=== PATIENT | female | born 1960 ===

== ENCOUNTER 2016-11-08 13:05 | Emergency (ER) | payer MEDICARE ==
[2016-11-08 13:06] VITALS: BMI 38.0
[2016-11-08 13:30] VITALS: TEMP 98.2; O2SAT 100
[2016-11-08] MEDS ORDERED: Sodium Chloride 0.9% 1,000 ML IV STA (14:21)
--- NOTE | 2016-11-08 14:22 | ED PDOC ---
Arrival/HPI - General Chief Complaint: Abdominal Pain Time Seen by Provider: 11/08/16 14:04 Historian: Patient - History of Present Illness Narrative History of Present Illness (Text): 11/08/16 14:19 A 55 year old female, whose past medical history includes hypothyroidism and arthritis, gastric bypass 2 yrs ago, presents to the emergency department complaining of left upper abdominal pain for 2 days. Patient denies any relieving or exacerbating factors. Patient denies any fever, chills, nausea, vomiting, diarrhea, urinary symptoms, chest pain, shortness of breath or any other complaints. PMD: Dr. Moore 11/08/16 18:29 Time/Duration: Other (2 days) Quality: Other Context: Home Past Medical History - Provider Review Nursing Documentation Reviewed: Yes - Tetanus Immunization Tetanus Immunization: Unknown - Cardiac Hx Cardiac Disorders: Yes Hx Hypertension: Yes - Pulmonary Hx Respiratory Disorders: No - Neurological Hx Neurological Disorder: Yes Hx Migraine: Yes - HEENT Hx HEENT Disorder: No - Renal Hx Renal Disorder: No - Endocrine/Metabolic Hx Endocrine Disorders: Yes Hx Diabetes Mellitus Type 2: Yes (PREDIABETES) Hx Hypothyroidism: Yes - Hematological/Oncological Hx Blood Disorders: No - Integumentary Hx Dermatological Disorder: No - Musculoskeletal/Rheumatological Hx Musculoskeletal Disorders: Yes Hx Arthritis: Yes Hx Osteoporosis: Yes - Gastrointestinal Hx Gastrointestinal Disorders: Yes Hx Gastritis: Yes - Genitourinary/Gynecological Hx Genitourinary Disorders: No - Psychiatric Hx Psychophysiologic Disorder: Yes Hx Depression: Yes Hx Emotional Abuse: No Hx Physical Abuse: No Hx Substance Use: No - Surgical History Hx Section: Yes (X3) Hx Hysterectomy: Yes Hx Thyroidectomy: Yes (PARTIAL) Other/Comment: BREAST LIFT, LT SHOULDER TENDON REPAIR, PARTIAL THYROIDECTOMY, LT ARM CYST REMOVAL, - Anesthesia Hx Anesthesia: Yes Hx Anesthesia Reactions: No Hx Malignant Hyperthermia: No - Suicidal Assessment Feels Threatened In Home Enviroment: No Family/Social History - Physician Review Nursing Documentation Reviewed: Yes Family/Social History: No Known Family HX Smoking Status: Never Smoked Hx Alcohol Use: Yes (social) Hx Substance Use: No Hx Substance Use Treatment: No Allergies/Home Meds Allergies/Adverse Reactions: Allergies codeine Allergy (Verified 11/08/16 13:28) RASH oxycodone Allergy (Verified 11/08/16 13:28) RASH tramadol Allergy (Verified 11/08/16 13:28) RASH Home Medications: Home Meds Medication Instructions Recorded Confirmed Levothyroxine [Synthroid] 100 mcg PO DAILY 11/08/16 11/08/16 Omeprazole 20 mg PO DAILY 11/08/16 11/08/16 buPROPion [Bupropion HCl] 100 mg PO DAILY 11/08/16 11/08/16 Review of Systems - Physician Review All systems were reviewed & negative as marked: Yes - Review of Systems Constitutional: absent: Fevers, Night Sweats Respiratory: absent: SOB Cardiovascular: absent: Chest Pain Gastrointestinal: Abdominal Pain. absent: Diarrhea, Nausea, Vomiting Genitourinary Female: absent: Dysuria, Frequency, Hematuria, Urine Output Changes Physical Exam Vital Signs Reviewed: Yes Vital Signs Temp Pulse Resp BP Pulse Ox 11/08/16 16:43 80 17 119/58 L 100 11/08/16 13:30 98.2 F 70 16 110/76 100 Temperature: Afebrile Blood Pressure: Normal Pulse: Regular Respiratory Rate: Normal Appearance: Positive for: Well-Appearing, Non-Toxic, Comfortable Pain Distress: None Mental Status: Positive for: Alert and Oriented X 3 - Systems Exam Head: Present: Atraumatic, Normocephalic Pupils: Present: PERRL Extroacular Muscles: Present: EOMI Conjunctiva: Present: Normal Mouth: Present: Moist Mucous Membranes Neck: Present: Normal Range of Motion Respiratory/Chest: Present: Clear to Auscultation, Good Air Exchange. No: Respiratory Distress, Accessory Muscle Use Cardiovascular: Present: Regular Rate and Rhythm, Normal S1, S2. No: Murmurs Abdomen: Present: Tenderness (Left upper quadrant and Epigastric tenderness to palpation), Normal Bowel Sounds. No: Distention, Peritoneal Signs Back: Present: Normal Inspection Upper Extremity: Present: Normal Inspection. No: Cyanosis, Edema Lower Extremity: Present: Normal Inspection. No: Edema Neurological: Present: GCS=15, CN II-XII Intact, Speech Normal Skin: Present: Warm, Dry, Normal Color. No: Rashes Psychiatric: Present: Alert, Oriented x 3, Normal Insight, Normal Concentration Medical Decision Making ED Course and Treatment: 11/08/16 14:19 Impression: A 55 year old female with left upper abdominal pain. Patient denies nausea, vomiting or diarrhea. consider gastritis pancreatitis, gerd. noted endoscopy 2 yrs ago showing hiatal hernia, gastritis. Plan: -- Chest xray -- EKG -- Labs -- Urinalysis -- Zofran, Protonix and IV fluids -- Reassess and disposition Progress Notes: Report Date : 11/08/2016 14:32:59 Procedure: Chest xray Dictator : Eb Gallego MD IMPRESSION: No active disease. 11/08/16 15:35 EKG: Ordered, reviewed, and independently interpreted the EKG. Rate : 68 BPM Rhythm : NSR Interpretation : No ST/T wave changes 11/08/16 18:29 pt reasseseD: pain improving. discussed results with patient. pt advised to see her gi doctor and primary care doctor for followup. return precautions advised. - Lab Interpretations Lab Results: 11/08/16 15:15 11/08/16 15:15 Lab Results 11/08/16 15:15: Sodium 141, Potassium 4.1, Chloride 103, Carbon Dioxide 29, Anion Gap 13, BUN 19, Creatinine 0.6, Est GFR ( Amer) > 60, Est GFR (Non- Af Amer) > 60, Random Glucose 83, Calcium 9.1, Magnesium 1.7, Total Bilirubin 0.4, AST 26, ALT 25, Alkaline Phosphatase 66, Lactate Dehydrogenase 401, Total Creatine Kinase 47, Troponin I < 0.01, Total Protein 7.1, Albumin 4.0, Globulin 3.1, Albumin/Globulin Ratio 1.3, Lipase 72 11/08/16 15:15: PT 10.6, INR 0.98, APTT 26.7 11/08/16 15:15: WBC 3.8 L, RBC 4.08, Hgb 11.7 L, Hct 36.1, MCV 88.5, MCH 28.7, MCHC 32.4, RDW 13.2, Plt Count 256, MPV 8.7, Gran % 43.0 L, Lymph % (Auto) 47.9 H, [place] % (Auto) 7.8 H, Eos % (Auto) 1.0 L, Baso % (Auto) 0.3, Gran # 1.65, Lymph # 1.8, [place] # 0.3, Eos # 0.0, Baso # 0.01 11/08/16 14:10: Urine Color Yellow, Urine Appearance Clear, Urine pH 6.0, Ur Specific [place] >= 1.030, Urine Protein Negative, Urine Glucose (UA) Negative, Urine Ketones Trace H, Urine Blood Negative, Urine Nitrate Negative, Urine Bilirubin Negative, Urine Urobilinogen 0.2, Ur Leukocyte Esterase Negative I have reviewed the lab results: Yes - RAD Interpretation Radiology Orders: 11/08/16 14:18 CHEST PORTABLE [RAD] Stat 11/08/16 16:08 ABD & PELVIS IV CONTRAST ONLY [CT] Stat - Medication Orders Current Medication Orders: Discontinued Medications Sodium Chloride (Sodium Chloride 0.9%) 1,000 mls @ 999 mls/hr IV .Q1H1M STA Stop: 11/08/16 15:21 Last Admin: 11/08/16 15:37 Dose: 999 mls/hr Iohexol (Omnipaque 350 100 Ml) Confirm Administered Dose 350 mg .ROUTE .STK-MED ONE Stop: 11/08/16 16:23 Ketorolac Tromethamine (Toradol) 30 mg IVP STAT STA Stop: 11/08/16 16:09 Last Admin: 11/08/16 16:43 Dose: 30 mg Ondansetron HCl (Zofran Inj) 4 mg IVP STAT STA Stop: 11/08/16 14:21 Last Admin: 11/08/16 15:37 Dose: 4 mg Pantoprazole Sodium (Protonix Inj) 40 mg IVP STAT STA Stop: 11/08/16 14:21 Last Admin: 11/08/16 15:36 Dose: 40 mg - Scribe Statement The provider has reviewed the documentation as recorded by the Ilene Montes Provider Scribe Attestation: All medical record entries made by the Ilene were at my direction and personally dictated by me. I have reviewed the chart and agree that the record accurately reflects my personal performance of the history, physical exam, medical decision making, and the department course for this patient. I have also personally directed, reviewed, and agree with the discharge instructions and disposition. Disposition/Present on Arrival - Present on Arrival Any Indicators Present on Arrival: No History of DVT/PE: No History of Uncontrolled Diabetes: No Urinary Catheter: No History of Decub. Ulcer: No History Surgical Site Infection Following: None - Disposition Have Diagnosis and Disposition been Completed?: Yes Diagnosis: Abdominal pain Disposition: HOME/ ROUTINE Disposition Time: 18:31 Patient Problems: Current Active Problems Problem Status Onset Abdominal pain Acute Condition: STABLE Discharge Instructions (ExitCare): Acute Abdominal Pain (ED) Print Language: FRISIAN Additional Instructions: please follow up with your doctor. return to emergency room with worsneing symptoms or concerns. Prescriptions: Famotidine [Pepcid] 20 mg PO DAILY #20 tab Referrals: Lamar Moore MD [Primary Care Provider] - Follow up with primary Forms: [employer] (Vietnamese)
[2016-11-08 14:33] LABS: URINE BILIRUBIN NEGATIVE (NEGATIVE); URINE BLOOD NEGATIVE (NEGATIVE); URINE GLUCOSE (UA) NEGATIVE (NEGATIVE); URINE LEUKOCYTE ESTERASE NEGATIVE Leu/uL (NEGATIVE); URINE NITRATE NEGATIVE (NEGATIVE); URINE PROTEIN NEGATIVE mg/dL (<30 mg/dL); URINE UROBILINOGEN 0.2 E.U./dL (<1 E.U./dL)
[2016-11-08 14:34] LABS: URINE APPEARANCE CLEAR (CLEAR); URINE COLOR YELLOW (YELLOW)
--- NOTE | 2016-11-08 14:34 | RAD ---
HISTORY: abd -pain COMPARISON: 05/17/2016 FINDINGS: LUNGS: No active pulmonary disease. PLEURA: No significant pleural effusion identified, no pneumothorax apparent. CARDIOVASCULAR: Normal. OSSEOUS STRUCTURES: No significant abnormalities. VISUALIZED UPPER ABDOMEN: Normal. OTHER FINDINGS: None. IMPRESSION: No active disease.
[2016-11-08 15:47] LABS: ALB/GLOB RATIO 1.3 (1.1-1.8); ALT/SGPT 25 U/L (7-56); AST/SGOT 26 U/L (15-39); BLOOD UREA NITROGEN 19 mg/dL (7-21); CALCIUM 9.1 mg/dL (8.4-10.5); GFR AFRICAN-AMERICAN > 60; GFR NON-AFRICAN AMERICAN > 60; LIPASE 72 U/L (23-300); MAGNESIUM 1.7 mg/dL (1.7-2.2)
[2016-11-08 15:51] LABS: BASO # 0.01 K/mm3 (0.0-2.0); BASO % 0.3 % (0.0-3.0); GRAN # 1.65 (1.4-6.5); HEMOGLOBIN 11.7 g/dL (12.0-16.0); INR 0.98 (0.93-1.08); LYMPH # 1.8 (1.2-3.4); LYMPH % 47.9 % (22.0-35.0); MEAN CELL VOLUME 88.5 fl (80.0-105.0); MEAN CORPUSCULAR HEMOGLOBIN 28.7 pg (25.0-35.0); MEAN CORPUSCULAR HGB CONC 32.4 g/dl (31.0-37.0); MEAN PLATELET VOLUME 8.7 fl (7.0-11.0); MONO # 0.3 (0.1-0.6); MONO % 7.8 % (1.0-6.0); PARTIAL THROMBOPLASTIN TIME 26.7 Seconds (23.7-30.8); PLATELET COUNT 256 10^3/uL (120.0-450.0); PROTHROMBIN TIME 10.6 Seconds (9.9-11.8); RBC 4.08 10^6/uL (3.5-6.1); RED CELL DISTRIBUTION WIDTH 13.2 % (11.5-14.5); WHITE BLOOD COUNT 3.8 10^3/ul (4.5-11.0)
[2016-11-08 16:09] LABS: TROPONIN I < 0.01 ng/mL
[2016-11-08] MEDS ORDERED: Iohexol 350 MG/100 ML VIAL ONE (16:22)
[2016-11-08 16:44] VITALS: RESP 17
--- NOTE | 2016-11-08 18:22 | CT ---
PROCEDURE: CT Abdomen and Pelvis with contrast HISTORY: Left upper quadrant abdominal pain Relevant medical history: Gastritis COMPARISON: 04/21/2013. CT abdomen and pelvis. TECHNIQUE: Contrast dose: 100 cc Omnipaque 350 Radiation dose: Total exam DLP = 600.17 mGy-cm. This CT exam was performed using one or more of the following dose reduction techniques: Automated exposure control, adjustment of the mA and/or kV according to patient size, and/or use of iterative reconstruction technique. FINDINGS: LOWER THORAX: Dependent airspace disease likely atelectasis at the lung bases. LIVER: Unremarkable. No gross lesion or ductal dilatation. GALLBLADDER AND BILE DUCTS: Unremarkable. PANCREAS: Unremarkable. No gross lesion or ductal dilatation. SPLEEN: Unremarkable. ADRENALS: Unremarkable. No mass. KIDNEYS AND URETERS: Unremarkable. No hydronephrosis. No solid mass. VASCULATURE: Unremarkable. No aortic aneurysm. BOWEL: Postoperative findings left upper quadrant presumably gastric bypass/ stably procedure. APPENDIX: Normal appendix. PERITONEUM: Unremarkable. No free fluid. No free air. LYMPH NODES: Unremarkable. No enlarged lymph nodes. BLADDER: Unremarkable. REPRODUCTIVE: Unremarkable. BONES: No acute fracture. OTHER FINDINGS: None. IMPRESSION: Postoperative findings left upper quadrant likely related to gastric bypass surgery. Otherwise no acute/ significant findings or interval changes compared to the prior study.
[2016-11-08 18:53] VITALS: BP 118/60; PULSE 79
--- NOTE | 2016-11-09 23:56 | CARD ---
APPROVED REPORT EKG Measurement Heart [id number] <Conclusion> Normal sinus rhythm Normal ECG
== END 2016-11-08 18:58 | disposition home or self-care (01) ==
LOC: ED 13:05
DX: R10.12 Left upper quadrant pain (principal)
CPT/HCPCS: 71010; 74177; 80053; 81003; 82550; 83615; 83690; 83735; 84484; 85025; 85610; 85730; 93005; 96361; 96374; 96375; 99284; C9113; J1885; J2405; J7040; Q9967

== ENCOUNTER 2017-09-19 16:12 | Emergency (ER) | payer MEDICAID, MEDICARE, OTHER ==
[2017-09-19 16:21] VITALS: BMI 33.6
[2017-09-19 16:25] VITALS: RESP 18; TEMP 98.3
--- NOTE | 2017-09-19 16:45 | ED PDOC ---
Arrival/HPI - General Chief Complaint: Back Pain Time Seen by Provider: 09/19/17 16:15 Historian: Patient - History of Present Illness Narrative History of Present Illness (Text): 09/19/17 18:32 56 yo female presents to the ED c/o buttocks pain since fall 2 days ago. Pain is achy. Denies any lower back pain. No numbness or weakness. No incontinence. No head injury or LOC. Patient is able to walk without ataxia. Past Medical History - Provider Review Nursing Documentation Reviewed: Yes - Infectious Disease Hx of Infectious Diseases: None - Tetanus Immunization Tetanus Immunization: Unknown - Cardiac Hx Cardiac Disorders: Yes Hx Hypertension: Yes - Pulmonary Hx Respiratory Disorders: No - Neurological Hx Neurological Disorder: Yes Hx Migraine: Yes - HEENT Hx HEENT Disorder: No - Renal Hx Renal Disorder: No - Endocrine/Metabolic Hx Endocrine Disorders: Yes Hx Diabetes Mellitus Type 2: Yes (PREDIABETES) Hx Hypothyroidism: Yes - Hematological/Oncological Hx Blood Disorders: No - Integumentary Hx Dermatological Disorder: No - Musculoskeletal/Rheumatological Hx Musculoskeletal Disorders: Yes Hx Arthritis: Yes Hx Osteoporosis: Yes - Gastrointestinal Hx Gastrointestinal Disorders: Yes Hx Gastritis: Yes Other/Comment: gastric sleeve - Genitourinary/Gynecological Hx Genitourinary Disorders: No - Psychiatric Hx Psychophysiologic Disorder: Yes Hx Depression: Yes Hx Emotional Abuse: No Hx Physical Abuse: No Hx Substance Use: No - Surgical History Hx Section: Yes (X3) Hx Hysterectomy: Yes Hx Thyroidectomy: Yes (PARTIAL) Other/Comment: BREAST LIFT, LT SHOULDER TENDON REPAIR, PARTIAL THYROIDECTOMY, LT ARM CYST REMOVAL, - Anesthesia Hx Anesthesia: Yes Hx Anesthesia Reactions: No Hx Malignant Hyperthermia: No - Suicidal Assessment Feels Threatened In Home Enviroment: No Family/Social History - Physician Review Nursing Documentation Reviewed: Yes Family/Social History: No Known Family HX Smoking Status: Never Smoked Hx Alcohol Use: Yes (social) Hx Substance Use: No Hx Substance Use Treatment: No Allergies/Home Meds Allergies/Adverse Reactions: Allergies codeine Allergy (Verified 11/08/16 13:28) RASH oxycodone Allergy (Verified 11/08/16 13:28) RASH tramadol Allergy (Verified 11/08/16 13:28) RASH Home Medications: Home Meds Medication Instructions Recorded Confirmed Levothyroxine [Synthroid] 100 mcg PO DAILY 11/08/16 09/19/17 Omeprazole 20 mg PO DAILY 11/08/16 09/19/17 Atorvastatin [Lipitor] 1 tab PO HS 09/19/17 09/19/17 Review of Systems - Physician Review All systems were reviewed & negative as marked: Yes - Review of Systems Constitutional: Normal Eyes: Normal ENT: Normal Respiratory: Normal Cardiovascular: Normal Gastrointestinal: Normal Genitourinary Female: Normal Musculoskeletal: Other (buttocks pain) Skin: Normal Neurological: Normal Endocrine: Normal Hemo/Lymphatic: Normal Psychiatric: Normal Physical Exam Vital Signs Reviewed: Yes Vital Signs Temp Pulse Resp BP Pulse Ox 09/19/17 16:24 98.3 F 76 18 113/78 98 Temperature: Afebrile Blood Pressure: Normal Pulse: Regular Respiratory Rate: Normal Appearance: Positive for: Well-Appearing, Non-Toxic, Comfortable Pain Distress: None Mental Status: Positive for: Alert and Oriented X 3 - Systems Exam Head: Present: Atraumatic, Normocephalic Pupils: Present: PERRL Extroacular Muscles: Present: EOMI Conjunctiva: Present: Normal Mouth: Present: Moist Mucous Membranes Neck: Present: Normal Range of Motion. No: MIDLINE TENDERNESS Respiratory/Chest: Present: Clear to Auscultation, Good Air Exchange. No: Respiratory Distress, Accessory Muscle Use Cardiovascular: Present: Regular Rate and Rhythm, Normal S1, S2. No: Murmurs Abdomen: No: Tenderness, Distention, Peritoneal Signs Back: Present: Normal Inspection. No: Midline Tenderness Upper Extremity: Present: Normal Inspection. No: Cyanosis, Edema Lower Extremity: Present: Normal Inspection. No: Edema Neurological: Present: GCS=15, CN II-XII Intact, Speech Normal Skin: Present: Warm, Dry, Normal Color. No: Rashes Psychiatric: Present: Alert, Oriented x 3, Normal Insight, Normal Concentration Medical Decision Making ED Course and Treatment: 09/19/17 18:34 56 yo female with buttocks pain r/o fx -- Xrays -- Pain control Xrays reviewed and negative for Fracture. Patient given tylenol and toradol for pain. She was advised to ice the wound and to take tylenol for pain. Flexeril Rx given for extra pain control. She's not allergic to flexeril. She will f/u with her pmd and return to the ED if symptoms worsen. She speaks Anguillan primarily and I explained everything to her in Anguillan. - RAD Interpretation Radiology Orders: 09/19/17 16:41 LS SPINE AP/LAT [RAD] Stat SACRUM &/or COCCYX (MIN 2VW) [RAD] Stat - Medication Orders Current Medication Orders: Discontinued Medications Acetaminophen (Tylenol 325mg Tab) 650 mg PO STAT STA Stop: 09/19/17 16:42 Last Admin: 09/19/17 16:51 Dose: 650 mg MAR Pain/Vitals Document 09/19/17 16:51 LA (Rec: 09/19/17 16:52 LA [place] [id number]) Pain Reassessment Is This A Pain ReAssessment? No Sleep Is patient sleeping during reassessment? No Presence of Pain Presence of Pain Yes Pain Scale Used Pain Scale Used Numeric Location Upper or Lower Lower Pain Location Body Site tailbone Intensity 9 Scale Used Numeric Re-Assess: MAR Pain/Vitals Document 09/19/17 17:51 LA (Rec: 09/19/17 18:28 [facility] Pain Reassessment Is This A Pain ReAssessment? Yes Sleep Is patient sleeping during reassessment? No Presence of Pain Presence of Pain Yes Pain Scale Used Pain Scale Used Numeric Location Intensity 4 Ibuprofen (Motrin Tab) 600 mg PO STAT STA Stop: 09/19/17 16:42 Last Admin: 09/19/17 16:57 Dose: Ketorolac Tromethamine (Toradol) 30 mg IM STAT STA Stop: 09/19/17 18:28 Disposition/Present on Arrival - Present on Arrival Any Indicators Present on Arrival: No History of DVT/PE: No History of Uncontrolled Diabetes: No Urinary Catheter: No History of Decub. Ulcer: No History Surgical Site Infection Following: None - Disposition Have Diagnosis and Disposition been Completed?: Yes Diagnosis: Sacral contusion Disposition: HOME/ ROUTINE Disposition Time: 18:37 Patient Plan: Discharge Patient Problems: Current Active Problems Problem Status Onset Sacral contusion Acute Condition: IMPROVED Discharge Instructions (ExitCare): Coccyx Injury (DC) Additional Instructions: STEWART CANTU, thank you for letting us take care of you today. Your provider was Jerrell Perez DO and you were treated for Sacral Contusion. The emergency medical care you received today was directed at your acute symptoms. If you were prescribed any medication, please fill it and take as directed. It may take several days for your symptoms to resolve. Return to the Emergency Department if your symptoms worsen, do not improve, or if you have any other problems. Please contact your doctor or call one of the physicians/clinics you have been referred to that are listed on the Patient Visit Information form that is included in your discharge packet. Bring any paperwork you were given at discharge with you along with any medications you are taking to your follow up visit. Our treatment cannot replace ongoing medical care by a primary care provider outside of the emergency department. Thank you for allowing the [facility] team to be part of your care today. If you had an X-Ray or CT scan: A Radiologist will review the ED reading if any change in treatment is needed we will contact you. If you had a blood, urine, or wound culture: It will take several days for the results, if any change in treatment is needed we will contact you. If you had an STI test: It will take 48 hours for the results. Please call after 1 week if you have not heard back. Prescriptions: Cyclobenzaprine [Flexeril] 5 mg PO TID PRN #20 tab PRN Reason: Muscle Spasm Referrals: [facility], [Non-Staff] - Follow up with primary Forms: [employer] (Yoruba), WORK NOTE
[2017-09-19 18:41] VITALS: BP 115/75; PULSE 80; O2SAT 100
--- NOTE | 2017-09-20 09:03 | RAD ---
PROCEDURE: Radiographs of the Lumbar Spine. HISTORY: fall r/o fx COMPARISON: No prior. FINDINGS: BONES: Normal alignment. No listhesis. No fracture. DISC SPACES: Unremarkable. OTHER FINDINGS: None. IMPRESSION: Unremarkable radiographs of the lumbar spine.
--- NOTE | 2017-09-20 09:04 | RAD ---
PROCEDURE: Radiographs of the Sacrum and Coccyx HISTORY: fall r/o fx COMPARISON: None available. TECHNIQUE: Frontal and lateral views of the sacrum and coccyx FINDINGS: BONES: Sacrum and coccyx unremarkable. No fracture or focal lesion. SACROILIAC JOINTS: Unremarkable. OTHER FINDINGS: None. IMPRESSION: Unremarkable radiographs of the sacrum and coccyx.
== END 2017-09-19 18:40 | disposition home or self-care (01) ==
LOC: ED 16:12
DX: S30.0XXA Contusion of lower back and pelvis, initial encounter (principal); W07.XXXA Fall from chair, initial encounter; Y92.9 Unspecified place or not applicable
CPT/HCPCS: 72100; 72220; 96372; 99283; J1885

== ENCOUNTER 2017-09-25 06:40 | Emergency (ER) | payer MEDICARE, OTHER ==
[2017-09-25 06:41] VITALS: BMI 33.6
[2017-09-25 06:53] VITALS: RESP 18
[2017-09-25 07:30] VITALS: O2SAT 100
--- NOTE | 2017-09-25 07:37 | ED PDOC ---
Arrival/HPI - General Chief Complaint: Headache Time Seen by Provider: 09/25/17 07:11 Historian: Patient - History of Present Illness Narrative History of Present Illness (Text): 09/25/17 07:37 Patient is a 56 year old [place]an-speaking female, with past medical history of hypertension, migraine and hypothyroidism, presents to the Emergency department accompanied by sister complaining of neck pain since Tuesday. As translated by sister, patient states she fell on her buttocks on Tuesday but does not recall hitting her head or losing consciousness. Patient complained of back pain following the fall and was seen in the Emergency department on 09/19/17, when all tests were noted negative. Although her back pain resolved after treatment, however patient soon developed neck pain since Tuesday, which radiates to the back of her head. Patient reports visiting her PMD Dr. Moore and was prescribed pain medication with no improvement to symptoms. Patient now presents to the Emergency department for evaluation of her neck pain and headache, which worsens with head movement especially towards the right. She denies gait disturbance. Denies visual symptoms. Denies chest pain or abdominal pain. Denies numbness or tingling to arms or legs. Denies toothache or dental trauma. PMD: Dr. Moore Time/Duration: < week (since Tuesday) Symptom Onset: Gradual Symptom Course: Unchanged Quality: Aching Activities at Onset: Light Context: Home Past Medical History - Provider Review Nursing Documentation Reviewed: Yes - Infectious Disease Hx of Infectious Diseases: None - Tetanus Immunization Tetanus Immunization: Unknown - Reproductive Menopause: Yes - Cardiac Hx Cardiac Disorders: Yes Hx Hypertension: Yes - Pulmonary Hx Respiratory Disorders: No - Neurological Hx Neurological Disorder: Yes Hx Migraine: Yes - HEENT Hx HEENT Disorder: No - Renal Hx Renal Disorder: No - Endocrine/Metabolic Hx Endocrine Disorders: Yes Hx Diabetes Mellitus Type 2: Yes (PREDIABETES) Hx Hypothyroidism: Yes - Hematological/Oncological Hx Blood Disorders: No - Integumentary Hx Dermatological Disorder: No - Musculoskeletal/Rheumatological Hx Musculoskeletal Disorders: Yes Hx Arthritis: Yes Hx Osteoporosis: Yes - Gastrointestinal Hx Gastrointestinal Disorders: Yes Hx Gastritis: Yes Other/Comment: gastric sleeve - Genitourinary/Gynecological Hx Genitourinary Disorders: No - Psychiatric Hx Psychophysiologic Disorder: Yes Hx Depression: Yes Hx Emotional Abuse: No Hx Physical Abuse: No Hx Substance Use: No - Surgical History Hx Section: Yes (X3) Hx Hysterectomy: Yes Hx Thyroidectomy: Yes (PARTIAL) Other/Comment: BREAST LIFT, LT SHOULDER TENDON REPAIR, PARTIAL THYROIDECTOMY, LT ARM CYST REMOVAL, - Anesthesia Hx Anesthesia: Yes Hx Anesthesia Reactions: No Hx Malignant Hyperthermia: No - Suicidal Assessment Feels Threatened In Home Enviroment: No Family/Social History - Physician Review Nursing Documentation Reviewed: Yes Family/Social History: No Known Family HX Smoking Status: Never Smoked Hx Alcohol Use: Yes (social) Hx Substance Use: No Hx Substance Use Treatment: No Allergies/Home Meds Allergies/Adverse Reactions: Allergies codeine Allergy (Verified 09/25/17 06:54) RASH oxycodone Allergy (Verified 09/25/17 06:54) RASH tramadol Allergy (Verified 09/25/17 06:54) RASH Home Medications: Home Meds Medication Instructions Recorded Confirmed Levothyroxine [Synthroid] 100 mcg PO DAILY 11/08/16 09/25/17 Omeprazole 20 mg PO DAILY 11/08/16 09/25/17 Atorvastatin [Lipitor] 1 tab PO HS 09/19/17 09/25/17 Review of Systems - Physician Review All systems were reviewed & negative as marked: Yes - Review of Systems Constitutional: absent: Fevers Eyes: absent: Vision Changes, Photophobia, Eye Pain ENT: absent: Voice Changes, Sore Throat, Sinus Congestion Respiratory: absent: SOB, Cough Cardiovascular: absent: Chest Pain, Palpitations, Edema Gastrointestinal: absent: Abdominal Pain, Diarrhea, Nausea, Vomiting Genitourinary Female: absent: Frequency Musculoskeletal: Neck Pain. absent: Back Pain, Joint Swelling Skin: absent: Rash Neurological: Headache, Dizziness. absent: Focal Weakness, Gait Changes, Speech Changes, Facial Droop, Disequilibrium, Seizure Endocrine: absent: Polyuria Hemo/Lymphatic: absent: Easy Bleeding Psychiatric: absent: Anxiety, Depression Physical Exam - Physical Exam Narrative Physical Exam (Text): 09/25/17 07:51 Head: Atraumatic. Normocephalic. No facial bony tenderness. Eyes: PERRL. EOMI. Conjunctivae are not pale. Visual acuity and visual tong intact. ENT: Mucous membranes are moist and intact. Oropharynx is clear and symmetric. NO facial swelling. NO acute dental trauma noted. Neck: Left sided muscle spasm to posterior neck. Full ROM. No JVD. No lymphadenopathy. No midline tenderness or deformity. Cardiovascular: Regular rate. Regular rhythm. No murmurs, rubs, or gallops. Distal pulses are 2+ and symmetric. Pulmonary/Chest: No evidence of respiratory distress. Clear to auscultation bilaterally. Abdominal: Soft and non-distended. There is no tenderness. No rebound, guarding, or rigidity. Back: No CVA tenderness. No midline tenderness. NO pain with straight leg testing. Extremities: No edema. No cyanosis. No clubbing. Full range of motion in all extremities. No calf tenderness. Skin: Skin is warm and dry. Neurological: Alert, awake, and oriented. No slurred speech. Motor and sensory exam intact. Psychiatric: Good eye contact. Normal interaction, affect, and behavior. 09/25/17 14:59 Vital Signs Reviewed: Yes Vital Signs Temp Pulse Resp BP Pulse Ox 09/25/17 10:50 98.2 F 69 18 147/96 H 100 09/25/17 08:06 68 18 128/79 100 09/25/17 07:30 70 18 130/87 100 09/25/17 06:51 97.3 F L 73 18 130/87 99 Temperature: Afebrile Blood Pressure: Normal Pulse: Regular Appearance: Positive for: Non-Toxic, Uncomfortable Pain Distress: Mild Mental Status: Positive for: Alert and Oriented X 3 Medical Decision Making ED Course and Treatment: 09/25/17 07:45 Impression: 56 year old female presents to the Emergency department for neck pain and headache since Tuesday. Differential Diagnosis included but are not limited to: Torticollis vs. cervical strain vs. tension head rule out cerebral Plan: -- Valium -- Toradol -- CT of Head -- CT of Cervical spin -- Reassess and disposition Prior Visits: Notes and results from previous visits were reviewed. Progress Notes: Patient on exam has significant cervical spasm, left sided, palpable. NO neuro deficits noted. No fever. Pain is reproducible, worse with movement. She denies head injury or neck pain after fall one week ago. She is neuro intact. No chest pain or sob. I suspect neck pain spasm is contributing to patient's headache. 09/25/17 07:50 I have reviewed all allergies thoroughly with the patient, with her sister present for translation, and risks, benefits and side effects reviewed of Valium. Patient understands and is agreeable with medication. Valium and toradol given for neck pain. 09/25/17 09:01 CT of head reviewed by radiologist, shows: FINDINGS: Brain: Unremarkable. No hemorrhage. No significant white matter disease. No edema. Ventricles: Unremarkable. No ventriculomegaly. Bones/joints: Unremarkable. No acute fracture. Soft tissues: Unremarkable. Sinuses: Unremarkable as visualized. No acute sinusitis. Mastoid air cells: Unremarkable as visualized. No mastoid effusion. IMPRESSION: Normal head/brain CT. 09/25/17 09:38 CT of Cervical spine reviewed by radiologist, show: FINDINGS: Vertebrae: There is straightening of the cervical spine. This is nonspecific but may be seen in the setting of cervical muscle spasm, please correlate clinically. No acute fracture. Discs/spinal canal/neural foramina: No acute findings. No spinal canal stenosis. Soft tissues: Unremarkable. Lung apices: Unremarkable as visualized. IMPRESSION: There is straightening of the cervical spine. This is nonspecific but may be seen in the setting of cervical muscle spasm, please correlate clinically. 09/25/17 15:09 CT findings reviewed with patient and sister who translates. Patient has significant improvement in pain and resolution of headache. Will discharge with valium and naproxen, advised discontinuation of other pain mediation. Patient has no headache on discharge. Instructions provided via translation to sister and patient. - RAD Interpretation Radiology Orders: 09/25/17 07:35 HEAD W/O CONTRAST [CT] Stat 09/25/17 07:36 CERVICAL SPINE W/O CONTRAST [CT] Stat Engineering Assistant: Radiologist - Medication Orders Current Medication Orders: Discontinued Medications Diazepam (Valium) 2 mg PO ONCE ONE PRN Reason: Protocol Stop: 09/25/17 07:39 Last Admin: 09/25/17 08:26 Dose: 2 mg Ketorolac Tromethamine (Toradol) 30 mg IM ONCE ONE Stop: 09/25/17 07:39 Last Admin: 09/25/17 08:25 Dose: 30 mg MAR Pain Assessment Document 09/25/17 08:25 (Rec: 09/25/17 08:26 [id number]) Pain Reassessment Is this a pain reassessment? No Sleep Is patient sleeping during reassessment? No Presence of Pain Presence of Pain Yes IM Administration Charges Document 09/25/17 08:25 (Rec: 06/24/18 08:26 [id number]) Charges for Administration # of IM Administrations 1 - Scribe Statement The provider has reviewed the documentation as recorded by the Scribe Estefany Jones. All medical record entries made by the Scribe were at my direction and personally dictated by me. I have reviewed the chart and agree that the record accurately reflects my personal performance of the history, physical exam, medical decision making, and the department course for this patient. I have also personally directed, reviewed, and agree with the discharge instructions and disposition. Disposition/Present on Arrival - Present on Arrival Any Indicators Present on Arrival: No History of DVT/PE: No History of Uncontrolled Diabetes: No Urinary Catheter: No History of Decub. Ulcer: No History Surgical Site Infection Following: None - Disposition Have Diagnosis and Disposition been Completed?: Yes Diagnosis: Cervical strain, Headache Disposition: HOME/ ROUTINE Disposition Time: 10:45 Patient Plan: Discharge Condition: GOOD Discharge Instructions (ExitCare): Headache, Adult, Cervical Muscle Strain (DC) Additional Instructions: For any headaches, visual symptoms, numbness or weakness, chest pain or shortness of breath, abdominal pain, unsteadiness, persistent or worsening of symptoms, get rechecked. Follow-up with your physician in 1-2 days. Use valium with caution, do not drive with this medication, may cause drowsiness. Prescriptions: Naproxen 250 mg PO BID PRN #10 tablet PRN Reason: Pain, Mild (1-3) diaZEpam [Valium] 2 mg PO BID PRN #6 tab PRN Reason: Muscle Spasm Referrals: [facility] [Outside] - [place] up [place] [facility] [place] - Follow up with primary Forms: Setup (Bangladeshi)
--- NOTE | 2017-09-25 08:59 | CT ---
EXAM: CT Head Without Intravenous Contrast CLINICAL HISTORY: 56 years old, female; Pain; Other: Fall; Additional info: HX of fall with headache after one week TECHNIQUE: Axial computed tomography images of the head/brain without intravenous contrast. All CT scans at this facility use at least one of these dose optimization techniques: automated exposure control; mA and/or kV adjustment per patient size (includes targeted exams where dose is matched to clinical indication); or iterative reconstruction. Coronal and sagittal reformatted images were created and reviewed. COMPARISON: No relevant prior studies available. FINDINGS: Brain: Unremarkable. No hemorrhage. No significant white matter disease. No edema. Ventricles: Unremarkable. No ventriculomegaly. Bones/joints: Unremarkable. No acute fracture. Soft tissues: Unremarkable. Sinuses: Unremarkable as visualized. No acute sinusitis. Mastoid air cells: Unremarkable as visualized. No mastoid effusion. IMPRESSION: Normal head/brain CT.
--- NOTE | 2017-09-25 09:01 | CT ---
EXAM: CT Cervical Spine Without Intravenous Contrast CLINICAL HISTORY: 56 years old, female; Pain; Neck pain; Additional info: HX of fall persisent left sided neck pain TECHNIQUE: Axial computed tomography images of the cervical spine without intravenous contrast. All CT scans at this facility use at least one of these dose optimization techniques: automated exposure control; mA and/or kV adjustment per patient size (includes targeted exams where dose is matched to clinical indication); or iterative reconstruction. Coronal and sagittal reformatted images were created and reviewed. COMPARISON: No relevant prior studies available. FINDINGS: Vertebrae: There is straightening of the cervical spine. This is nonspecific but may be seen in the setting of cervical muscle spasm, please correlate clinically. No acute fracture. Discs/spinal canal/neural foramina: No acute findings. No spinal canal stenosis. Soft tissues: Unremarkable. Lung apices: Unremarkable as visualized. IMPRESSION: There is straightening of the cervical spine. This is nonspecific but may be seen in the setting of cervical muscle spasm, please correlate clinically.
[2017-09-25 10:51] VITALS: BP 147/96; PULSE 69; TEMP 98.2
== END 2017-09-25 10:50 | disposition home or self-care (01) ==
LOC: ED 06:40
DX: S16.1XXA Strain of muscle, fascia and tendon at neck level, initial encounter (principal); W18.30XA Fall on same level, unspecified, initial encounter; R51 Headache; E03.9 Hypothyroidism, unspecified; I10 Essential (primary) hypertension; E11.9 Type 2 diabetes mellitus without complications
CPT/HCPCS: 70450; 72125; 96372; 99283; J1885

== ENCOUNTER 2018-07-06 08:43 | Emergency (ER) | payer MEDICARE, OTHER ==
[2018-07-06 08:44] VITALS: BMI 33.6
--- NOTE | 2018-07-06 09:05 | ED PDOC ---
Arrival/HPI - General Chief Complaint: Abdominal Pain Time Seen by Provider: 07/06/18 08:59 Historian: Patient - History of Present Illness Narrative History of Present Illness (Text): 07/06/18 09:02 56 year old Chinese-speaking female, with past medical history of hypertension, migraine and hypothyroidism, presents to the Emergency department complaining of abdominal pain x 1 week. Pain is located to the epigastrum, described as burning, worse with eating and lying flat. Associated 5 episodes of nonbloody nonbilious vomiting since last night with associated migraine headache. States this feels like headaches in the past. Typically takes Excedrin but did not want to upset her stomach. Having BM per baseline. Last BM brown, soft yesterday. Pt has not taken any medication for pain. States she had similar symptoms 2 months ago that began after taking an unknown pill for her back pain. Denies fever, chills, back pain, chest pain, SOB, dizziness, vision changes, neck pain/stiffness, numbness, weakness, paresthesias, photophobia, sinus congestion, cough, or any other associated complaints. PMD: Dr. Moore GI: Dr. Acosta Past Medical History - Provider Review Nursing Documentation Reviewed: Yes - Infectious Disease Hx of Infectious Diseases: None - Tetanus Immunization Tetanus Immunization: Unknown - Cardiac Hx Cardiac Disorders: Yes Hx Hypertension: Yes - Pulmonary Hx Respiratory Disorders: No - Neurological Hx Neurological Disorder: Yes Hx Migraine: Yes - HEENT Hx HEENT Disorder: No - Renal Hx Renal Disorder: No - Endocrine/Metabolic Hx Endocrine Disorders: Yes Hx Diabetes Mellitus Type 2: Yes (PREDIABETES) Hx Hypothyroidism: Yes - Hematological/Oncological Hx Blood Disorders: No - Integumentary Hx Dermatological Disorder: No - Musculoskeletal/Rheumatological Hx Musculoskeletal Disorders: Yes Hx Arthritis: Yes Hx Osteoporosis: Yes - Gastrointestinal Hx Gastrointestinal Disorders: Yes Hx Gastritis: Yes Other/Comment: gastric sleeve - Genitourinary/Gynecological Hx Genitourinary Disorders: No - Psychiatric Hx Psychophysiologic Disorder: Yes Hx Depression: Yes Hx Emotional Abuse: No Hx Physical Abuse: No Hx Substance Use: No - Surgical History Hx Section: Yes (X3) Hx Hysterectomy: Yes Hx Thyroidectomy: Yes (PARTIAL) Other/Comment: BREAST LIFT, LT SHOULDER TENDON REPAIR, PARTIAL THYROIDECTOMY, LT ARM CYST REMOVAL, - Anesthesia Hx Anesthesia: Yes Hx Anesthesia Reactions: No Hx Malignant Hyperthermia: No - Suicidal Assessment Feels Threatened In Home Enviroment: No Family/Social History - Physician Review Nursing Documentation Reviewed: Yes Family/Social History: No Known Family HX Smoking Status: Never Smoked Hx Alcohol Use: Yes (social) Hx Substance Use: No Hx Substance Use Treatment: No Allergies/Home Meds Allergies/Adverse Reactions: Allergies codeine Allergy (Verified 09/25/17 06:54) RASH oxycodone Allergy (Verified 09/25/17 06:54) RASH tramadol Allergy (Verified 09/25/17 06:54) RASH Home Medications: Home Meds Medication Instructions Recorded Confirmed Levothyroxine [Synthroid] 100 mcg PO DAILY 11/08/16 07/06/18 Omeprazole 20 mg PO DAILY 11/08/16 07/06/18 Atorvastatin [Lipitor] 1 tab PO HS 09/19/17 07/06/18 Review of Systems - Review of Systems Constitutional: Normal. absent: Fatigue, Fevers Eyes: Normal. absent: Vision Changes ENT: Normal. absent: Hearing Changes, Sore Throat Respiratory: Normal. absent: SOB, Cough Cardiovascular: Normal. absent: Chest Pain, Palpitations, Syncope Gastrointestinal: Abdominal Pain, Nausea, Vomiting. absent: Stool Changes, Constipation, Diarrhea, Appetite Changes, Hematochezia, Hematemesis Genitourinary Female: Normal. absent: Dysuria, Frequency Musculoskeletal: Normal. absent: Back Pain, Neck Pain Skin: Normal. absent: Rash Neurological: Headache, Dizziness. absent: Focal Weakness, Disequilibrium Physical Exam Vital Signs Reviewed: Yes Temperature: Afebrile Blood Pressure: Normal Pulse: Regular Respiratory Rate: Normal Appearance: Positive for: Well-Appearing, Non-Toxic, Comfortable Pain Distress: None Mental Status: Positive for: Alert and Oriented X 3 - Systems Exam Head: Present: Atraumatic, Normocephalic Pupils: Present: PERRL Extroacular Muscles: Present: EOMI Conjunctiva: Present: Normal Mouth: Present: Moist Mucous Membranes Neck: Present: Normal Range of Motion. No: Meningeal Signs Respiratory/Chest: Present: Clear to Auscultation, Good Air Exchange. No: Respiratory Distress, Accessory Muscle Use Cardiovascular: Present: Regular Rate and Rhythm, Normal S1, S2, Peripheal Pulses Present Abdomen: Present: Tenderness (mild epigastric and periumbilical), Normal Bowel Sounds. No: Distention, Peritoneal Signs, Rebound, Guarding Back: Present: Normal Inspection. No: CVA Tenderness Upper Extremity: Present: Normal Inspection, Normal ROM, NORMAL PULSES, N eurovascularly Intact, Capillary Refill < 2s. No: Cyanosis, Edema, Temperature Abnormalties Lower Extremity: Present: Normal Inspection, Normal ROM. No: Edema Neurological: Present: GCS=15, CN II-XII Intact, Speech Normal, Motor Func Grossly Intact, Normal Sensory Function, Gait Normal Skin: Present: Warm, Dry, Normal Color. No: Rashes Psychiatric: Present: Alert, Oriented x 3, Normal Insight, Normal Concentration, Normal Affect, Normal Mood Medical Decision Making ED Course and Treatment: 07/06/18 09:06 Initial Plan: * CBC, CMP * Coags * Troponin * Lipase * UA * EKG * CXR * CT Abd/Pelvis with IV contrast * Head CT * IVF * Tylenol * Zofran * Pepcid 09:10 EKG shows NSR at 83, no STEMI or other ischemia; troponin negative 10:13 Bloodwork reviewed, unremarkable. Pt with history of leukopenia. UA unremarkable 11:57 Imaging reviewed, significant for esophageal thickening, otherwise unchanged from prior exams. Head CT unremarkable Patient reports resolution of symptoms with medication. Advised PMD, GI, and neurology followup. Pt comfortable with discharge home. Discharge instructions discussed with the help of Nurse Ferrell for translation. Diagnostic testing results and plan of care discussed with patient. Strict instructions given regarding prescription use, importance of followup, and signs/symptoms to return to ER including worsening pain, fever, chest pain, SOB, or any other new/worsening symptoms. Pt verbalized understanding of discussion. Patient is A&Ox3, ambulating with steady gait, with vital signs stable for discharge. - Lab Interpretations Lab Results: 07/06/18 09:30 07/06/18 09:30 Lab Results 07/06/18 09:30: Sodium 140, Potassium 4.2, Chloride 104, Carbon Dioxide 30, Anion Gap 11, BUN 14, Creatinine 0.6 L, Est GFR ( Amer) > 60, Est GFR (Non-Af Amer) > 60, Random Glucose 94, Calcium 9.7, Total Bilirubin 0.3, AST 29, ALT 22, Alkaline Phosphatase 70, Troponin I < 0.01, Total Protein 7.2, Albumin 4.0, Globulin 3.2, Albumin/Globulin Ratio 1.3, Lipase 66 07/06/18 09:30: Urine Color Yellow, Urine Appearance Clear, Urine pH 5.5, Ur Specific [place] >= 1.030, Urine Protein Negative, Urine Glucose (UA) Negative, Urine Ketones Trace H, Urine Blood Negative, Urine Nitrate Negative, Urine Bilirubin Negative, Urine Urobilinogen 0.2, Ur Leukocyte Esterase Negative 07/06/18 09:30: PT 11.7, INR 1.04, APTT 34.7 07/06/18 09:30: WBC 3.3 L, RBC 4.29, Hgb 11.6 L, Hct 36.8, MCV 85.8, MCH 27.0, MCHC 31.5, RDW 13.6, Plt Count 254, MPV 8.4, Neut % (Auto) 55.2, Lymph % (Auto) 35.8 H, [place] % (Auto) 7.8 H, Eos % (Auto) 0.9 L, Baso % (Auto) 0.3, Lymph # (Auto) 1.2, [place] # (Auto) 0.3, Eos # (Auto) 0.0, Baso # (Auto) 0.01, Absolute Neuts (auto) 1.83 I have reviewed the lab results: Yes - RAD Interpretation Narrative RAD Interpretations (Text): 07/06/18 11:[address]: FINDINGS: HEMORRHAGE: No intracranial hemorrhage. BRAIN: Normal rubin-white matter differentiation and density are appreciated throughout the cerebrum and cerebellum with the brainstem appearing unremarkable as well. There is no mass effect. There is no suspicious extra-axial fluid collection and the midline brain anatomy appears diffusely unremarkable. No atrophy or chronic microvascular ischemic changes. VENTRICLES: Unremarkable. No hydrocephalus. CALVARIUM: Unremarkable. PARANASAL SINUSES: Unremarkable as visualized. No significant inflammatory changes. MASTOID AIR CELLS: Unremarkable as visualized. No inflammatory changes. OTHER FINDINGS: None. IMPRESSION: Stable, unremarkable unenhanced head CT. Abd/Pelvis CT with IV contrast: FINDINGS: LOWER THORAX: Cardiomegaly. Limited bilateral basilar atelectasis. Hiatal hernia. Distal esophageal mural thickening not excluded. Consider follow-up upper endoscopy for added characterization. LIVER: Unremarkable. No gross lesion or ductal dilatation. GALLBLADDER AND BILE DUCTS: Contracted gallbladder with normal caliber common bile duct apparent. No radiodense cholelithiasis or choledocholithiasis. PANCREAS: Unremarkable. No gross lesion or ductal dilatation. SPLEEN: Unremarkable. ADRENALS: Stable possible benign nodule left adrenal gland under 1 cm size. KIDNEYS AND URETERS: Stable tiny lucency upper pole left kidney. Punctate intrarenal calculus again evident at the midpole left kidney. Right kidney remains diffusely unremarkable, typically normal appearing. VASCULATURE: Unremarkable. No aortic aneurysm. No aortic atherosclerotic calcification or mural plaque present. BOWEL: Postop changes again suggest prior gastric sleeve surgery with the stomach collapsed and not well evaluated. Further, evaluation of the gastrointestinal tract is limited due to the lack of oral co ntrast administration. No bowel obstruction apparent. Bladder but of retained fecal material scattered throughout the large bowel without prominent colonic distension. APPENDIX: Normal appendix. PERITONEUM: A tiny umbilical hernia is appreciate containing only fat once again. No measure edema, ascites or free intra peritoneal gas collection identified. LYMPH NODES: Unremarkable. No enlarged lymph nodes. BLADDER: Unremarkable. REPRODUCTIVE: A stable small right adnexal cyst or loculated peritoneal collection is seen at the right lower quadrant abdomen, separate from the appendix. This is unchanged in the interval. Prior hysterectomy again evident. BONES: No acute fracture. OTHER FINDINGS: None. IMPRESSION: 1. No definite acute abdominal or pelvic findings. 2. Postop changes are seen related to the stomach suggestive of prior gastric sleeve surgery without significant interval change. 3. Incidentally thickened distal esophagus versus hiatal hernia. This is a significant interval finding and follow-up upper endoscopy is advised to exclude potential malignancy though esophagitis is a possibility as well. 4. Small, benign left adrenal nodule unchanged in size under 1 cm. 5. Punctate intrarenal calculus nonobstructive at the left kidney. CXR: FINDINGS: LUNGS: No active pulmonary disease. PLEURA: No significant pleural effusion identified, no pneumothorax apparent. CARDIOVASCULAR: No aortic atherosclerotic calcification present. Normal cardiac size. No pulmonary vascular congestion. OSSEOUS STRUCTURES: No significant abnormalities. VISUALIZED UPPER ABDOMEN: Normal. OTHER FINDINGS: None. IMPRESSION: No interval acute cardiopulmonary disease appreciated. 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 - EKG Interpretation EKG Interpretation (Text): 07/06/18 09:10 Rate 83; NSR; Normal Intervals; No STEMI or other signs of acute ischemia Interpreted by ED Physician: Yes Type: 12 lead EKG Comparison: Com.w/previous EKG (08/07/17) Disposition/Present on Arrival - Present on Arrival Any Indicators Present on Arrival: No History of DVT/PE: No History of Uncontrolled Diabetes: No Urinary Catheter: No History Surgical Site Infection Following: None - Disposition Have Diagnosis and Disposition been Completed?: Yes Diagnosis: Reflux gastritis, Migraine Disposition: HOME/ ROUTINE Disposition Time: 12:00 Patient Plan: Discharge Condition: IMPROVED Discharge Instructions (ExitCare): Upper GI Endoscopy, Migraine Headache (DC), Gastritis (DC) Print Language: HUNGARIAN Additional Instructions: Pepcid cada 12 horas segn sea necesario para la indigestin. Maalox cada 6 horas segn sea necesario para la acidez estomacal Seguimiento con GI segn lo programado el de . Seguimiento con neurologa en 2 mathews. Seguimiento con mdico primario en 2 mathews. Regrese a la shaan de emergencias con cualquier sntoma nuevo o que empeore Prescriptions: Aluminum Hydroxide/Magnesium [Maalox Plus 30 ml] 10 ml PO Q6 #1 bottle Famotidine [Pepcid] 20 mg PO Q12 PRN #30 tab PRN Reason: Heartburn Referrals: Lamar Moore MD [Primary Care Provider] - Follow up with primary Rebecca Mccullough MD [Staff Provider] - Follow up with primary Luis Lowery MD [Staff Provider] - Follow up with primary Forms: [employer] (Chinese), WORK NOTE
[2018-07-06 09:10] VITALS: RESP 18; TEMP 98.2
[2018-07-06] MEDS ORDERED: Sodium Chloride 0.9% 1,000 ML IV STA (09:18)
[2018-07-06] MEDS ORDERED: Iohexol 350 MG/100 ML VIAL ONE (09:42)
[2018-07-06 09:43] LABS: BASO # 0.01 K/mm3 (0.0-2.0); BASO % 0.3 % (0.0-3.0); EOS % 0.9 % (1.5-5.0); HEMOGLOBIN 11.6 g/dL (12.0-16.0); LYMPH # 1.2 (1.2-3.4); LYMPH % 35.8 % (22.0-35.0); MEAN CELL VOLUME 85.8 fl (80.0-105.0); MEAN CORPUSCULAR HGB CONC 31.5 g/dl (31.0-37.0); MEAN PLATELET VOLUME 8.4 fl (7.0-11.0); MONO # 0.3 (0.1-0.6); MONO % 7.8 % (1.0-6.0); PH,URINE 5.5 (4.7-8.0); RBC 4.29 10^6/uL (3.5-6.1); RED CELL DISTRIBUTION WIDTH 13.6 % (11.5-14.5); URINE BILIRUBIN NEGATIVE (NEGATIVE); URINE BLOOD NEGATIVE (NEGATIVE); URINE GLUCOSE (UA) NEGATIVE (NEGATIVE); URINE LEUKOCYTE ESTERASE NEGATIVE Leu/uL (NEGATIVE); URINE PROTEIN NEGATIVE mg/dL (<30 mg/dL); URINE UROBILINOGEN 0.2 E.U./dL (<1 E.U./dL); WHITE BLOOD COUNT 3.3 10^3/uL (4.5-11.0)
[2018-07-06 09:45] LABS: URINE APPEARANCE CLEAR (CLEAR); URINE COLOR YELLOW (YELLOW)
[2018-07-06 09:50] LABS: ALB/GLOB RATIO 1.3 (1.1-1.8); ALT/SGPT 22 U/L (7-56); AST/SGOT 29 U/L (14-36); BLOOD UREA NITROGEN 14 mg/dL (7-21); CALCIUM 9.7 mg/dL (8.4-10.5); GFR NON-AFRICAN AMERICAN > 60; INR 1.04; LIPASE 66 U/L (23-300); PARTIAL THROMBOPLASTIN TIME 34.7 Seconds (26.9-38.3); PROTHROMBIN TIME 11.7 SECONDS (9.4-12.5)
[2018-07-06 10:02] LABS: TROPONIN I < 0.01 ng/mL
--- NOTE | 2018-07-06 11:32 | CT ---
Date of service: 07/06/2018 PROCEDURE: CT HEAD WITHOUT CONTRAST. HISTORY: headache COMPARISON: Noncontrast head CT 09/25/2017. TECHNIQUE: Axial computed tomography images were obtained through the head/brain without intravenous contrast. Radiation dose: Total exam DLP = 1047.41 mGy-cm. This CT exam was performed using one or more of the following dose reduction techniques: Automated exposure control, adjustment of the mA and/or kV according to patient size, and/or use of iterative reconstruction technique. FINDINGS: HEMORRHAGE: No intracranial hemorrhage. BRAIN: Normal rubin-white matter differentiation and density are appreciated throughout the cerebrum and cerebellum with the brainstem appearing unremarkable as well. There is no mass effect. There is no suspicious extra-axial fluid collection and the midline brain anatomy appears diffusely unremarkable. No atrophy or chronic microvascular ischemic changes. VENTRICLES: Unremarkable. No hydrocephalus. CALVARIUM: Unremarkable. PARANASAL SINUSES: Unremarkable as visualized. No significant inflammatory changes. MASTOID AIR CELLS: Unremarkable as visualized. No inflammatory changes. OTHER FINDINGS: None. IMPRESSION: Stable, unremarkable unenhanced head CT.
--- NOTE | 2018-07-06 11:53 | CT ---
Date of service: 07/06/2018 PROCEDURE: CT Abdomen and Pelvis with contrast HISTORY: epigastric and periumbilical abdominal pain COMPARISON: Abdomen pelvis CT with contrast 11/08/2016. Noncontrast abdomen and pelvis CT 04/21/2013. TECHNIQUE: Following the intravenous administration of iodinated contrast material, a CT examination of the abdomen and pelvis was performed from the domes of the diaphragms to the symphysis pubis with reformatted datasets provided in axial, sagittal and coronal planes. Oral contrast was not administered as per referring physician request. Contrast dose: Omnipaque 350, 100 cc Radiation dose: Total exam DLP = 894.84 mGy-cm. This CT exam was performed using one or more of the following dose reduction techniques: Automated exposure control, adjustment of the mA and/or kV according to patient size, and/or use of iterative reconstruction technique. FINDINGS: LOWER THORAX: Cardiomegaly. Limited bilateral basilar atelectasis. Hiatal hernia. Distal esophageal mural thickening not excluded. Consider follow-up upper endoscopy for added characterization. LIVER: Unremarkable. No gross lesion or ductal dilatation. GALLBLADDER AND BILE DUCTS: Contracted gallbladder with normal caliber common bile duct apparent. No radiodense cholelithiasis or choledocholithiasis. PANCREAS: Unremarkable. No gross lesion or ductal dilatation. SPLEEN: Unremarkable. ADRENALS: Stable possible benign nodule left adrenal gland under 1 cm size. KIDNEYS AND URETERS: Stable tiny lucency upper pole left kidney. Punctate intrarenal calculus again evident at the midpole left kidney. Right kidney remains diffusely unremarkable, typically normal appearing. VASCULATURE: Unremarkable. No aortic aneurysm. No aortic atherosclerotic calcification or mural plaque present. BOWEL: Postop changes again suggest prior gastric sleeve surgery with the stomach collapsed and not well evaluated. Further, evaluation of the gastrointestinal tract is limited due to the lack of oral contrast administration. No bowel obstruction apparent. Bladder but of retained fecal material scattered throughout the large bowel without prominent colonic distension. APPENDIX: Normal appendix. PERITONEUM: A tiny umbilical hernia is appreciate containing only fat once again. No measure edema, ascites or free intra peritoneal gas collection identified. LYMPH NODES: Unremarkable. No enlarged lymph nodes. BLADDER: Unremarkable. REPRODUCTIVE: A stable small right adnexal cyst or loculated peritoneal collection is seen at the right lower quadrant abdomen, separate from the appendix. This is unchanged in the interval. Prior hysterectomy again evident. BONES: No acute fracture. OTHER FINDINGS: None. IMPRESSION: 1. No definite acute abdominal or pelvic findings. 2. Postop changes are seen related to the stomach suggestive of prior gastric sleeve surgery without significant interval change. 3. Incidentally thickened distal esophagus versus hiatal hernia. This is a significant interval finding and follow-up upper endoscopy is advised to exclude potential malignancy though esophagitis is a possibility as well. 4. Small, benign left adrenal nodule unchanged in size under 1 cm. 5. Punctate intrarenal calculus nonobstructive at the left kidney.
--- NOTE | 2018-07-06 12:12 | RAD ---
Date of service: 07/06/2018 HISTORY: abdominal pain COMPARISON: Portable chest 11/08/2016. TECHNIQUE: 1 view obtained. FINDINGS: LUNGS: No active pulmonary disease. PLEURA: No significant pleural effusion identified, no pneumothorax apparent. CARDIOVASCULAR: No aortic atherosclerotic calcification present. Normal cardiac size. No pulmonary vascular congestion. OSSEOUS STRUCTURES: No significant abnormalities. VISUALIZED UPPER ABDOMEN: Normal. OTHER FINDINGS: None. IMPRESSION: No interval acute cardiopulmonary disease appreciated.
[2018-07-06 13:21] VITALS: BP 116/74; PULSE 77; O2SAT 100
--- NOTE | 2018-07-06 19:12 | CARD ---
APPROVED REPORT Date of service: 07/06/2018 EKG Measurement Heart [id number] <Conclusion> Poor data quality, interpretation may be adversely affected Normal sinus rhythm Normal ECG
== END 2018-07-06 13:21 | disposition home or self-care (01) ==
LOC: ED 08:43
DX: K29.60 Other gastritis without bleeding (principal); G43.909 Migraine, unspecified, not intractable, without status migrainosus; I10 Essential (primary) hypertension; E03.9 Hypothyroidism, unspecified; R73.03 Prediabetes
CPT/HCPCS: 70450; 71045; 74177; 80053; 81003; 83690; 84484; 85025; 85610; 85730; 93005; 96374; 96375; 99283; J2405; J7030; Q9967

== ENCOUNTER 2018-07-18 08:21 | Outpatient (CLI) | payer MEDICARE | END 2018-07-18 08:22 | disposition home or self-care (01) | LOC: RAD 08:21 ==